=== PATIENT | male | born 2000 | race Caucasian/White ===

== ENCOUNTER 2022-06-18 00:03 | Emergency (ER) | payer MEDICAID, OTHER ==
[~2022-06-18] VITALS: Ht 180.3 cm; Wt 57.7 kg
[2022-06-18] MEDS ORDERED: SODIUM CHLORIDE 0.9% 1,000 ML IV ONE (00:45)
[2022-06-18 01:09] LABS: Alcohol, Urine < 3.0 mg/dL (0-10); Amphetamine Screen, Urine NEGATIVE (NEGATIVE); Barbiturate Scree,Urine NEGATIVE (NEGATIVE); Opiate Scree,Urine NEGATIVE (NEGATIVE); Phencyclidine Screen, Urine NEGATIVE (NEGATIVE)
[2022-06-18 01:10] LABS: Benzodiazephine Screen, Urine NEGATIVE (NEGATIVE); Cannabinoid Screen, Urine NEGATIVE (NEGATIVE); Cocaine Screen, Urine NEGATIVE (NEGATIVE)
[2022-06-18 01:31] LABS: Urine Bacteria NONE SEEN /hpf (None Seen); Urine Blood Negative /uL (Negative); Urine Specific Gravity 1.012 (1.001-1.035); Urine WBC <1 /hpf (0 - 3)
[2022-06-18 01:35] LABS: Basophils # (auto) 0 10 ^3/uL (0-0.2); Basophils % (auto) 0.7 % (0.0-2.0); Eosinophils # (auto) 0.1 10 ^3/uL (0-0.8); Eosinophils % (auto) 1.1 % (0.0-7.0); Hematocrit 44.9 % (41.0-53.0); Hemoglobin 15.5 g/dL (13.5-17.5); Lymphocytes # (auto) 2.4 10 ^3/uL (0.4-5.4); Lymphocytes % (auto) 35.2 % (10.0-50.0); Mean Corpuscular Hemoglobin 30.3 pg (28.0-32.0); Mean Corpuscular Hgb Conc. 34.5 g/dL (32.0-36.0); Mean Corpuscular Volume 87.8 fL (80.0-100.0); Monocytes # (auto) 0.3 10 ^3/uL (0-1.3); Monocytes % (auto) 4.7 % (0.0-12.0); Neutrophils % (auto) 58.3 % (37.0-80.0); Red Blood Cells 5.12 10^6/uL (4.5-5.90); Red Cell Distribution Width 13.8 % (11.8-14.3); White Blood Cell 6.9 10^3/uL (4.4-10.8)
[2022-06-18 02:20] LABS: Potassium 3.8 mmol/L (3.5-5.1)
[2022-06-18 02:21] LABS: Albumin 4.7 g/dL (3.4-5.0); BUN/Creatinine Ratio 15.1; Bilirubin, Total 0.5 mg/dL (0.2-1.0); Calcium 9.5 mg/dL (8.5-10.1); Total Protein 8.6 g/dL (6.4-8.2)
[2022-06-18 02:31] LABS: Magnesium 2.4 mg/dL (1.6-2.6)
[2022-06-18 04:17] VITALS: BP 115/88
== END 2022-06-18 04:19 | disposition home or self-care (01) ==
LOC: ER 00:03
DX: R00.2 Palpitations (principal)
CPT/HCPCS: 36415; 71046; 80053; 80307; 81001; 83735; 84443; 84484; 85025; 93005